=== PATIENT | female | born 1985 | race African-American/Black ===

== ENCOUNTER 2016-10-10 06:35 | Day surgery (SDC) | payer BC ==
[~2016-10-10] VITALS: Ht 162.6 cm; Wt 59.0 kg
[~2016-10-10 06:35] MED LIST: AMBIEN5 MG PO; ENDOCET 5-3251 EACH PO; IBUPROFEN800 MG PO; PRENATAL VITAM1 EAC1 PO; TRAMADOL HCL50 MG PO; TYLENOL REGULA325 MG PO; TYLENOL WITH C1 EACH PO; WOMEN'S DAILY1 EAC4 PO
[2016-10-10 07:42] VITALS: BP 105/59
[2016-10-10] MEDS ORDERED: IBUPROFEN800 MG PO (09:12)
[2016-10-10] MEDS ORDERED: HYDROCODON-ACE1 EAC7 PO (09:12)
[2016-10-10 11:01] VITALS: BP 116/77
[2016-10-10 12:05] VITALS: BP 110/77
[2016-10-15 09:39] LABS: INTERNAL CONTROL VALID? YES
== END 2016-10-10 12:20 | disposition home or self-care (01) ==
LOC: SDC
PROVIDERS: Obstetrics & Gynecology
PROC: 0UB74ZZ Excision of Bilateral Fallopian Tubes, Percutaneous Endoscopic Approach (ICD-10-PCS; principal; 2016-10-10)
DX: Z30.2 Encounter for sterilization (principal); Z88.0 Allergy status to penicillin
CPT/HCPCS: 84703; 88302; J0131; J0330; J0690; J1100; J1885; J2250; J2405; J2710; J3010